=== PATIENT | male | born 1945 | race Caucasian/White ===

== ENCOUNTER 2017-05-12 09:25 | Observation (INO) | payer OTHER ==
[~2017-05-12] VITALS: Ht 177.8 cm; Wt 80.9 kg
[2017-05-12] MEDS ORDERED: SODIUM CHLORIDE 0.9% 1000ML 1,000 ML IV STA (09:55)
[2017-05-12] MEDS ORDERED: SODIUM CHLORIDE 0.9% 1000ML 1,000 ML IV ONE (09:55)
--- NOTE | 2017-05-12 09:56 | EMERGENCY ROOM VISIT NOTE ---
History Report prepared by Tammy: Felisha Pelayo Under the Supervision of: Dr. Owen Caro M.D. First contact with patient: 09:37 Chief Complaint: CHEST PAIN Stated Complaint: CHEST TIGHTNESS, DIZZINESS, SWEAT, NAUSEA & VOMIT History of Present Illness The patient is a 71 year old male who presents to the Emergency Room with complaints of constant chest pain beginning 3 hours ago. The patient states that he was not able to get comfortable this morning and his chest began feeling tight. He notes that when he sat up to go to the bathroom he had an episode of dizziness and diaphoresis before laying back down. The patient complains of nausea, multiple episodes of vomiting, jittery legs, weakness, and a headache. He reports that he has had multiple episodes of shortness of breath in the last week and some abdominal pain. The patient's notes that he looks more pale than usual and may have had some slurred speech this morning. The patient denies any arm pain, bloody stool, black stool, hematemesis, fever, chills, urinary symptoms, trauma. The patient states that they drove from [place] yesterday and got home last night. He notes that when he got up to go to the bathroom today he felt like he might have an episode of syncope that he notes he has had in the past. He reports a history of hypotension and states that he takes a baby aspirin every day. The patient denies any cardiac history and notes that he had a normal stress test 9 years ago. Source of History: patient Onset: 3 hours ago Position: chest Quality: other (tightness) Timing: constant Modifying Factors (Relieving): other (sitting up) Associated Symptoms: + headache, + SOB, + nausea, + vomiting, + abdominal pain, + urinary symptoms, + weakness, No fevers, No chills Note: Pt complains of dizziness, jittery legs. He denies any arm pain, bloody stool, black stool, hematemesis, trauma. Review of Systems See HPI for pertinent positives & negatives. A total of 10 systems reviewed and were otherwise negative. Past Medical & Surgical Medical Problems: (1) Back pain (2) BPH (benign prostatic hyperplasia) (3) Hernia (4) Syncope Surgical Problems: (1) History of back surgery (2) History of back surgery (3) History of hernia repair (4) History of hernia repair Old medical records were reviewed. Nurse's notes were reviewed and I agree with. Family History No pertinent family history stated. Social History Smoking Status: Never Smoker Drug Use: none Marital Status: Housing Status: lives with significant other Current/Historical Medications Scheduled Aspirin (Aspirin Ec), 81 MG PO DAILY Cyclobenzaprine Hcl (Flexeril), 10 MG PO HS Diclofenac (Voltaren), 75 MG PO BID Fluticasone Propionate (Nasal) (Flonase Allergy Relief), 2 SPRAYS NA DAILY Glucosamine Sulfate (Glucosamine), 1,000 MG PO DAILY Loratadine (Claritin), 10 MG PO DAILY Methocarbamol (Robaxin), 750 MG PO DAILY Omeprazole (Prilosec), 20 MG PO DAILY Pregabalin (Lyrica), 100 MG PO HS Pseudoephedrine (Sudafed), 30 MG PO DAILY Sildenafil Citrate (Viagra), 100 MG PO PRN Terazosin Hcl (Hytrin), 2 MG PO HS Scheduled PRN Acetaminophen (Tylenol), 500 MG PO for Pain Diclofenac Sodium (Topical) (Voltaren 1% Top Gel), 1 APPLN TOP for Pain Allergies Coded Allergies: Clindamycin (Unverified Allergy, Unknown, ., 05/12/17) Penicillins (Unverified Allergy, Unknown, ., 05/12/17) Physical Exam Vital Signs Date Time Temp Pulse Resp B/P (MAP) Pulse Ox O2 Delivery O2 Flow Rate FiO2 05/12/17 13:49 86 05/12/17 13:13 36.7 74 16 115/72 97 Room Air 05/12/17 11:02 87 18 127/69 97 Room Air 05/12/17 09:58 71 16 95/60 98 Room Air 05/12/17 09:40 73 05/12/17 09:34 70 18 103/60 94 Room Air Physical Exam General: Well developed well nourished mildly uncomfortable appearing older male , breathing comfortably on room air. Normal speech HEENT: Normal cephalic atraumatic. Pupils are equal round and reactive to light. Sclerae are anicteric Extraocular movements are intact. Oropharynx is pink with moist mucous membranes. No swelling of the mouth lips or tongue. Neck: Supple with a midline trachea. No meningeal signs or stiffness, no JVD or bruits. No Stridor. Chest: Clear to auscultation bilaterally. No wheezes or rhonchi. No increased work of breathing. Heart: regular rate and rhythm. Abdomen: Soft nontender, nondistended without rebound guarding or rigidity. Extremities: No cyanosis clubbing or edema. No calf tenderness or assymetry Spine/Back. Non tender to palpation. No CVA tenderness Skin: Good turgor without rashes. Neurologic exam: Cranial nerves two through 12 are intact. Motor and sensation are intact and symmetrical throughout. Medical Decision & Procedures ER Provider Diagnostic Interpretation: Radiology results as stated below per my review and radiologist interpretation: CT OF THE HEAD WITHOUT CONTRAST FINDINGS: No acute intracranial hemorrhage, midline shift or mass effect is present. Ventricular system is normal. Basilar cisterns are patent. There are no extra-axial collections. Scattered white matter hypodensities likely reflect small vessel disease. There are no findings to suggest acute dural sinus thrombosis or acute territorial infarct. There is a small air-fluid level within the left sphenoid sinus. Mastoid air cells are clear. There are no significant calvarial abnormalities. IMPRESSION: 1. No acute intracranial findings. 2. Small left sphenoid sinus air-fluid level. Electronically signed by: Edi Delcid M.D. 05/12/2017 11:53 AM Dictated Date/Time: 05/12/2017 11:50 AM CHEST COMBO ANGIO DISSECTION FINDINGS: The caliber of the thoracic aorta is normal. There is no intramural hematoma or thoracic aortic dissection. The size of the heart is normal. A small hiatal hernia is present. No pulmonary emboli are identified. There are no enlarged axillary, mediastinal or hilar lymph nodes. Central airways are patent. No pneumothorax or pleural effusion is present. Linear and groundglass opacities reflect atelectasis. There is no consolidation to suggest pneumonia. A right hepatic lobe cyst is incidentally noted. Abdomen and pelvis will be reported separately. IMPRESSION: 1. No thoracic aortic dissection. 2. No acute intrathoracic findings. 3. Small hiatal hernia. Electronically signed by: Edi Delcid M.D. 05/12/2017 12:01 PM Dictated Date/Time: 05/12/2017 11:53 AM ANGIO ABD/PELVIS COMBO FINDINGS: CTA: The noncontrast scan demonstrates no evidence of intramural hematoma. Mild degree of atherosclerotic plaquing involves the abdominal aorta and proximal branch vasculature. The bilateral renal arteries are patent with mild plaquing present at their origins bilaterally without high-grade stenosis. There is plaquing at the origin of the SMA causing less than 50% stenosis. The celiac trunk and inferior mesenteric arteries are patent. There is no abdominal aortic aneurysm or dissection. No high-grade stenosis. The imaged inferior cardiac chambers are within normal limits. Imaged basilar subsegmental pulmonary branches appear patent. CT ABDOMEN AND PELVIS: There is subsegmental linear atelectasis or scarring of the right lung base. There is no pneumoperitoneum. There are a few scattered low attenuating lesions throughout the liver which are too small to characterize. Largest lesion measuring 1.5 x 1.3 cm within the right hepatic lobe suggesting a cyst or hemangioma. The spleen is diminutive in size. There is mild pancreatic atrophy. The gallbladder and adrenal glands appear normal. There is nonspecific 3 mm calcification within the region of the juana hepatis. No renal calculi or hydronephrosis identified. The kidneys appear to be within normal limits. Ureters and urinary bladder are also unremarkable. Prostate is mildly enlarged at 4.9 cm transversely. No bulky adenopathy. There is a small sliding-type hiatal hernia. There is no bowel obstruction. There are several loops of nondilated fluid-filled small bowel of the lower abdomen and pelvis. There is a mild amount of free pelvic fluid present. Moderate volume of formed colonic stool is present throughout which may reflect underlying constipation. The right hemicolon is fluid-filled. There is no evidence of acute appendicitis. There is a very small fat filled peribulbar hernia resident. Prior left hemilaminectomy noted at L5 with prior right hemilaminectomy at L4. Advanced facet arthropathy involves the lower lumbar spine. There is convex left curvature of the lumbar spine. And vertebral disc space narrowing seen at several levels, notably at L3-L4 and L4-L5. Less than 20% compression deformity of the L2 vertebral body is present without retropulsion, age indeterminate however appears to be chronic. IMPRESSION: 1. No evidence of abdominal aortic aneurysm, dissection or proximal branch occlusion. 2. Atherosclerotic plaquing at the origins of the renal arteries and SMA are present without high-grade stenosis. 3. Age-indeterminate compression deformity of the L2 vertebral body of less than 20% is noted without significant retropulsion. 4. Multiple nondilated fluid-filled loops of small and large bowel are present in conjunction with trace pelvic fluid suggesting enteritis with diarrheal state. There is no evidence of bowel obstruction. 5. Additional incidental findings as above. The above report was generated using voice recognition software. It may contain grammatical, syntax or spelling errors. Electronically signed by: Kishore Mora M.D. 05/12/2017 12:07 PM Dictated Date/Time: 05/12/2017 11:54 AM Laboratory Results 05/12/17 10:00 Red Blood Count 4.84, Mean Corpuscular Volume 89.5, Mean Corpuscular Hemoglobin 30.8, Mean Corpuscular Hemoglobin Concent 34.4, Mean Platelet Volume 9.0, Neutrophils (%) (Auto) 90.0, Lymphocytes (%) (Auto) 5.4, Monocytes (%) (Auto) 3.8, Eosinophils (%) (Auto) 0.6, Basophils (%) (Auto) 0.0, Neutrophils # (Auto) 4.31, Lymphocytes # (Auto) 0.26, Monocytes # (Auto) 0.18, Eosinophils # (Auto) 0.03, Basophils # (Auto) 0.00 05/12/17 10:00 Test 05/12/17 10:00 05/12/17 10:06 05/12/17 10:07 05/12/17 10:10 White Blood Count 4.79 K/uL (4.8-10.8) Red Blood Count 4.84 M/uL (4.7-6.1) Hemoglobin 14.9 g/dL (14.0-18.0) Hematocrit 43.3 % (42-52) Mean Corpuscular Volume 89.5 fL (80-100) Mean Corpuscular Hemoglobin 30.8 pg (25-34) Mean Corpuscular Hemoglobin Concent 34.4 g/dl (32-36) Platelet Count 227 K/uL (130-400) Mean Platelet Volume 9.0 fL (7.4-10.4) Neutrophils (%) (Auto) 90.0 % Lymphocytes (%) (Auto) 5.4 % Monocytes (%) (Auto) 3.8 % Eosinophils (%) (Auto) 0.6 % Basophils (%) (Auto) 0.0 % Neutrophils # (Auto) 4.31 K/uL (1.4-6.5) Lymphocytes # (Auto) 0.26 K/uL (1.2-3.4) Monocytes # (Auto) 0.18 K/uL (0.11-0.59) Eosinophils # (Auto) 0.03 K/uL (0-0.5) Basophils # (Auto) 0.00 K/uL (0-0.2) RDW Standard Deviation 43.0 fL (36.4-46.3) RDW Coefficient of Variation 13.2 % (11.5-14.5) Immature Granulocyte % (Auto) 0.2 % Immature Granulocyte # (Auto) 0.01 K/uL (0.00-0.02) Prothrombin Time 10.2 SECONDS (9.0-12.0) Prothromb Time International Ratio 1.0 (0.9-1.1) Activated Partial Thromboplast Time 23.3 SECONDS (21.0-31.0) Partial Thromboplastin Ratio 0.9 Est Creatinine Clear Calc Drug Dose 91.0 ml/min Estimated GFR () 106.0 Estimated GFR (Non- 91.5 BUN/Creatinine Ratio 18.0 (10-20) Calcium Level 8.5 mg/dl (8.5-10.1) Total Bilirubin 0.4 mg/dl (0.2-1) Direct Bilirubin < 0.1 mg/dl (0-0.2) Aspartate Amino Transf (AST/SGOT) 33 U/L (15-37) Alanine Aminotransferase (ALT/SGPT) 32 U/L (12-78) Alkaline Phosphatase 73 U/L (45-117) Total Creatine Kinase 572 U/L (39-308) Creatine Kinase MB 2.3 ng/ml (0.5-3.6) Creatine Kinase MB Ratio 0.4 (0-3.0) Total Protein 7.1 gm/dl (6.4-8.2) Albumin 3.7 gm/dl (3.4-5.0) Lipase 109 U/L (73-393) Thyroid Stimulating Hormone (TSH) 1.450 uIu/ml (0.300-4.500) Bedside Hemoglobin 16.0 g/dl (14.0-18.0) Bedside Hematocrit 47 % (42-52) Bedside Sodium 139 mEq/L (135-144) Bedside Potassium 3.9 mEq/L (3.3-5.0) Bedside Chloride 99 mEq/L (101-112) Bedside Total CO2 27 mEq/l (24-31) Anion Gap 18.0 mmol/L (16-25) Bedside Blood Urea Nitrogen 15 mg/dl (7-18) Bedside Creatinine 0.7 mg/dl (0.6-1.3) Bedside Glucose (other) 106 mg/dl (70-99) Bedside Ionized Calcium (Chrissy) 1.16 mmol/l (1.12-1.32) Bedside Troponin I < 0.030 ng/ml (0-0.045) KN-Anv-I-Type Natriuretic Peptide 80 pg/ml (0-900) Urine Color YELLOW Urine Appearance CLEAR (CLEAR) Urine pH 6.5 (4.5-7.5) Urine Specific [place] 1.012 (1.000-1.030) Urine Protein NEG (NEG) Urine Glucose (UA) NEG (NEG) Urine Ketones NEG (NEG) Urine Occult Blood NEG (NEG) Urine Nitrite NEG (NEG) Urine Bilirubin NEG (NEG) Urine Urobilinogen NEG (NEG) Urine Leukocyte Esterase NEG (NEG) Laboratory studies as stated above per my review. Medications Administered Medications (Trade) Dose Ordered Sig/Aisha Route Start Time Stop Time Status Last Admin Dose Admin Sodium Chloride 1,000 ml @ 999 mls/hr Q1H1M STAT IV 05/12/17 09:55 05/12/17 10:55 DC 05/12/17 10:15 999 MLS/HR Ondansetron HCl (Zofran Inj) 4 mg NOW STAT IV 05/12/17 10:39 05/12/17 10:40 DC 05/12/17 11:00 4 MG ECG Indication: chest pain Rate (beats per minute): 68 Rhythm: normal sinus Findings: LAFB, no acute ischemic change, no ectopy Comparison ECG Date: no prior available ED Course 0937: Past medical records reviewed. The patient was evaluated in room B10, and a complete history and physical examination were performed. 0955: Sodium Chloride 1000 ml @ 150 mls/hr IV, Sodium Chloride 1000 ml @ 999 mls /hr IV. 1011: I reevaluated the patient. He had an episode of emesis but is now feeling better. 1039: Zofran Inj 4mg IV. 1102: The patient had another episode of emesis. 1132: I reevaluated the patient and he is doing well. 1236: Discussed the patient's case with Dr. Kelly. The patient will be evaluated for further management. 1308: Upon reevaluation, the patient is doing well. I discussed the results and treatment plan with the patient. He verbalized agreement of the treatment plan. The patient will be evaluated for further management. Medical Decision Differential diagnosis includes acute coronary syndrome, arrhythmia, aortic aneurysm, CVA, sepsis, electrolyte or metabolic abnormality. This patient comes in as described above. He was placed in room B 10. Here for treatment and evaluation of chest pain and nausea/vomiting. He says he feels very dizzy at times particularly when standing. He has also had some abdominal pain at times and a headache. His symptoms are somewhat vague and seemed to be changing while he is in the ER.. He did vomit a couple times EKG shows no acute ischemic changes or ectopy I did a second EKG and there is no significant change compared to the first. Chest x-ray was unremarkable. Cardiac biomarkers are negative thus far multiple blood testing was unremarkable. There are no liver function or her lipase abnormalities. Because the patient's symptoms, I did do a CAT scan of his chest abdomen and pelvis to rule out aortic dissection or other pathology. She has no evidence to suggest AAA or aneurysm. There may be more of an enteritis. The patient was hydrated with IV normal saline while he was in the ER as well as received IV Zofran. The patient does feel much better but I do think with the chest pain and dizziness the vomiting he should be further ruled out for cardiac disease. I have consulted the [facility] hospitalist group this on the ER for these measures. Medication Reconcilliation Current Medication List: was personally reviewed by me Blood Pressure Screening Patient's blood pressure: Low blood pressure Blood pressure disposition: Did not require urgent referral Consults Time Called: 1230 Consulting Physician: Dr. Alex Barrett Returned Call: 1236 Discussed the patient's case with Dr. Kelly. The patient will be evaluated for further management. Impression Primary Impression: Precordial chest pain Additional Impressions: Vomiting Dizziness Abdominal pain Scribe Attestation The scribe's documentation has been prepared under my direction and personally reviewed by me in its entirety. I confirm that the note above accurately reflects all work, treatment, procedures, and medical decision making performed by me. Departure Information Dispostion Being Evaluated By Hospitalist Referrals No Doctor, Assigned (PCP) Patient Instructions My [facility] Problem Qualifiers
[2017-05-12] MEDS ORDERED: OPTIRAY 320 IV PRN (10:15)
[2017-05-12 10:18] LABS: ISTAT CREATININE 0.7 mg/dl (0.6-1.3); ISTAT IONIZED CALCIUM 1.16 mmol/l (1.12-1.32)
[2017-05-12 10:26] LABS: POINT OF CARE PRO-BNP 80 pg/ml (0-900); POINT OF CARE TROPONIN I < 0.030 ng/ml (0-0.045)
[2017-05-12] MEDS ORDERED: SILD100T PO (10:31)
[2017-05-12] MEDS ORDERED: ASPI81TA28 PO (10:31)
[2017-05-12] MEDS ORDERED: ACET-1256 PO (10:31)
[2017-05-12] MEDS ORDERED: CYCL10TA6 PO (10:31)
[2017-05-12] MEDS ORDERED: DICL-201 PO (10:31)
[2017-05-12] MEDS ORDERED: DICL1GEL12 TOP (10:31)
[2017-05-12] MEDS ORDERED: METH-307 PO (10:31)
[2017-05-12] MEDS ORDERED: HYT/2 PO (10:31)
[2017-05-12] MEDS ORDERED: LYR50 PO (10:31)
[2017-05-12] MEDS ORDERED: FLUT0.15 (10:31)
[2017-05-12] MEDS ORDERED: PRLSR20 PO (10:31)
[2017-05-12 10:32] LABS: EOS % 0.6 %; HEMATOCRIT 43.3 % (42-52); IG% 0.2 %; LYMPH % 5.4 %; LYMPH ABS # 0.26 K/uL (1.2-3.4); MEAN CELL VOLUME 89.5 fL (80-100); MEAN CORPUSCULAR HEMOGLOBIN 30.8 pg (25-34); MEAN CORPUSCULAR HGB CONC 34.4 g/dl (32-36); MONO % 3.8 %; PLATELET COUNT 227 K/uL (130-400); RED BLOOD COUNT 4.84 M/uL (4.7-6.1); WHITE BLOOD COUNT 4.79 K/uL (4.8-10.8)
[2017-05-12] MEDS ORDERED: CLR10 PO (10:32)
[2017-05-12] MEDS ORDERED: GLUC100014 PO (10:32)
[2017-05-12] MEDS ORDERED: PSEU30TA20 PO (10:32)
[2017-05-12 10:33] LABS: COMPLETE YES
[2017-05-12] MEDS ORDERED: ONDANSETRON INJ 2 MG/ML 2 ML VIAL IV STA (10:39)
[2017-05-12 10:44] LABS: PARTIAL THROMBOPLASTIN RATIO 0.9; PROTHROMBIN TIME (PATIENT) 10.2 SECONDS (9.0-12.0)
[2017-05-12 10:54] LABS: ALT/SGPT 32 U/L (12-78); AST/SGOT 33 U/L (15-37); BLOOD UREA NITROGEN 14 mg/dl (7-18); CALCIUM 8.5 mg/dl (8.5-10.1); CARBON DIOXIDE 31 mmol/L (21-32); CHLORIDE 104 mmol/L (98-107); CREATININE 0.78 mg/dl (0.60-1.40); GLUCOSE 101 mg/dl (70-99); POTASSIUM 3.8 mmol/L (3.5-5.1); SODIUM 138 mmol/L (136-145)
[2017-05-12 11:05] LABS: ALKALINE PHOSPHATASE 73 U/L (45-117); CKMB/CK RATIO 0.4 (0-3.0)
[2017-05-12 11:51] LABS: URINE APPEARANCE CLEAR (CLEAR); URINE BILIRUBIN NEG (NEG); URINE COLOR YELLOW; URINE NITRITE NEG (NEG); URINE PH 6.5 (4.5-7.5); URINE SPECIFIC GRAVITY 1.012 (1.000-1.030); UROBILINOGEN NEG (NEG)
--- NOTE | 2017-05-12 11:54 | DIAGNOSTIC IMAGING REPORT ---
CT OF THE HEAD WITHOUT CONTRAST CLINICAL HISTORY: Headache. Dizziness. COMPARISON STUDY: No previous studies for comparison. TECHNIQUE: Helical axial images of the head were obtained without IV contrast. Automated exposure control was utilized for the study. A dose lowering technique was utilized adhering to the principles of ALARA. FINDINGS: No acute intracranial hemorrhage, midline shift or mass effect is present. Ventricular system is normal. Basilar cisterns are patent. There are no extra-axial collections. Scattered white matter hypodensities likely reflect small vessel disease. There are no findings to suggest acute dural sinus thrombosis or acute territorial infarct. There is a small air-fluid level within the left sphenoid sinus. Mastoid air cells are clear. There are no significant calvarial abnormalities. IMPRESSION: 1. No acute intracranial findings. 2. Small left sphenoid sinus air-fluid level. Electronically signed by: Edi Delcid M.D. 05/12/2017 11:53 AM Dictated Date/Time: 05/12/2017 11:50 AM
[2017-05-12 12:01] LABS: MANUAL MICROSCOPIC REQUIRED? NO; REVIEW REQ? NO
--- NOTE | 2017-05-12 12:02 | DIAGNOSTIC IMAGING REPORT ---
CHEST COMBO ANGIO DISSECTION CLINICAL HISTORY: Chest tightness, nausea and vomiting. COMPARISON STUDY: No previous studies for comparison. TECHNIQUE: Unenhanced and arterial phase imaging of the chest was performed. Injection of 93 cc Optiray 320 IV was uneventful. Sagittal and coronal reconstructions were viewed as well as maximal intensity projections on an independent 3-D workstation. FINDINGS: The caliber of the thoracic aorta is normal. There is no intramural hematoma or thoracic aortic dissection. The size of the heart is normal. A small hiatal hernia is present. No pulmonary emboli are identified. There are no enlarged axillary, mediastinal or hilar lymph nodes. Central airways are patent. No pneumothorax or pleural effusion is present. Linear and groundglass opacities reflect atelectasis. There is no consolidation to suggest pneumonia. A right hepatic lobe cyst is incidentally noted. Abdomen and pelvis will be reported separately. IMPRESSION: 1. No thoracic aortic dissection. 2. No acute intrathoracic findings. 3. Small hiatal hernia. Electronically signed by: Edi Delcid M.D. 05/12/2017 12:01 PM Dictated Date/Time: 05/12/2017 11:53 AM
--- NOTE | 2017-05-12 12:09 | DIAGNOSTIC IMAGING REPORT ---
ANGIO ABD/PELVIS COMBO CLINICAL HISTORY: 71 years-old Male with eval for AAA acute chest tightness and dizziness with nausea and vomiting COMPARISON STUDY: CTA of the chest 05/12/2017 TECHNIQUE: Following the IV administration of 93 cc of Optiray 320, CT angiogram of the abdomen and pelvis was performed from the lung bases the proximal femora. Images are reviewed in the axial, sagittal, and coronal planes. 3-D MIPS images are created and assessed. IV contrast was administered without complication. Measurements were obtained utilizing NASCET criteria. A dose lowering technique was utilized adhering to the principles of ALARA. FINDINGS: CTA: The noncontrast scan demonstrates no evidence of intramural hematoma. Mild degree of atherosclerotic plaquing involves the abdominal aorta and proximal branch vasculature. The bilateral renal arteries are patent with mild plaquing present at their origins bilaterally without high-grade stenosis. There is plaquing at the origin of the SMA causing less than 50% stenosis. The celiac trunk and inferior mesenteric arteries are patent. There is no abdominal aortic aneurysm or dissection. No high-grade stenosis. The imaged inferior cardiac chambers are within normal limits. Imaged basilar subsegmental pulmonary branches appear patent. CT ABDOMEN AND PELVIS: There is subsegmental linear atelectasis or scarring of the right lung base. There is no pneumoperitoneum. There are a few scattered low attenuating lesions throughout the liver which are too small to characterize. Largest lesion measuring 1.5 x 1.3 cm within the right hepatic lobe suggesting a cyst or hemangioma. The spleen is diminutive in size. There is mild pancreatic atrophy. The gallbladder and adrenal glands appear normal. There is nonspecific 3 mm calcification within the region of the juana hepatis. No renal calculi or hydronephrosis identified. The kidneys appear to be within normal limits. Ureters and urinary bladder are also unremarkable. Prostate is mildly enlarged at 4.9 cm transversely. No bulky adenopathy. There is a small sliding-type hiatal hernia. There is no bowel obstruction. There are several loops of nondilated fluid-filled small bowel of the lower abdomen and pelvis. There is a mild amount of free pelvic fluid present. Moderate volume of formed colonic stool is present throughout which may reflect underlying constipation. The right hemicolon is fluid-filled. There is no evidence of acute appendicitis. There is a very small fat filled peribulbar hernia resident. Prior left hemilaminectomy noted at L5 with prior right hemilaminectomy at L4. Advanced facet arthropathy involves the lower lumbar spine. There is convex left curvature of the lumbar spine. And vertebral disc space narrowing seen at several levels, notably at L3-L4 and L4-L5. Less than 20% compression deformity of the L2 vertebral body is present without retropulsion, age indeterminate however appears to be chronic. IMPRESSION: 1. No evidence of abdominal aortic aneurysm, dissection or proximal branch occlusion. 2. Atherosclerotic plaquing at the origins of the renal arteries and SMA are present without high-grade stenosis. 3. Age-indeterminate compression deformity of the L2 vertebral body of less than 20% is noted without significant retropulsion. 4. Multiple nondilated fluid-filled loops of small and large bowel are present in conjunction with trace pelvic fluid suggesting enteritis with diarrheal state. There is no evidence of bowel obstruction. 5. Additional incidental findings as above. The above report was generated using voice recognition software. It may contain grammatical, syntax or spelling errors. Electronically signed by: Kishore Mora M.D. 05/12/2017 12:07 PM Dictated Date/Time: 05/12/2017 11:54 AM
[2017-05-12] MEDS ORDERED: ONDANSETRON INJ 2 MG/ML 2 ML VIAL IV PRN (14:00)
--- NOTE | 2017-05-12 14:31 | History and Physical ---
History & Physical Date & Time of Service: May 12, 2017 at 14:24 Chief Complaint: Chest Tightness, Dizziness, Sweat, Nausea & Vomit Primary Care Physician: No Doctor, Assigned History of Present Illness Source: patient, family (Kaleigh Pérez who is the at bedside. 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 Patient also reported feeling headache. Vitals in the ED were remarkable for low normal blood pressure of 103/60 and HR 70. Initial temperature was not documented however subsequent temperature taken afebrile 99.7 F. Because of pain of the head, chest , abdomen, patient was sent by ED provider for CT scan of head and CT abdomen/ angiography. CT head did not show evidence of intracranial injury and CT abdomen /angiography showed multiple nondilated fluid-filled loops of small and large bowel are present in conjunction with trace pelvic fluid suggestive of enteritis. As per the imaging report there is no evidence of abdominal aortic aneurysm, dissection or proximal branch occlusion; there is atherosclerotic plaquing at the origins of the renal arteries and SMA are present without high- grade stenosis. Other findings of small hiatal hernia and a right hepatic lobe cyst and age-indeterminate compression deformity of the L2 vertebral body of less than 20% is noted without significant retropulsion. Labs reviewed showing first troponin level negative at 0.03 and levels of AST/ALT/ Alkaline phosphatase/Bilirubin/Lipase within normal limits however elevated CK of 572. Urine studies negative. In the ED patient received IV fluids and Zofran 4 mg IV and when seen by hospitalist medicine provider, patient did not have further acute complaints of lightheadedness, chest/abdominal pain, or vomiting. He was able to give history without distress. Past Medical/Surgical History Medical Problems: (1) Back pain Status: Chronic (2) BPH (benign prostatic hyperplasia) Status: Chronic Surgical Problems: (1) History of back surgery Status: Chronic (2) History of hernia repair Status: Chronic Family History FH: bladder cancer FATHER FH: prostate cancer FATHER FH: thyroid cancer MOTHER FHx: heart disease FATHER MOTHER Hypertension MOTHER Social History Smoking Status: Never Smoker Alcohol Use: socially (2 glasses of wine per week) Drug Use: none Marital Status: Housing status: lives with family Immunizations History of Influenza Vaccine: Unknown History of Tetanus Vaccine?: Unknown History of Pneumococcal: Unknown History of Hepatitis B Vaccine: Unknown Multi-Drug Resistant Organisms History of MDRO: No Allergies Coded Allergies: Clindamycin (Unverified Allergy, Unknown, ., 05/12/17) Penicillins (Unverified Allergy, Unknown, ., 05/12/17) Home Medications Scheduled Aspirin (Aspirin Ec), 81 MG PO DAILY Cyclobenzaprine Hcl (Flexeril), 10 MG PO HS Diclofenac (Voltaren), 75 MG PO BID Fluticasone Propionate (Nasal) (Flonase Allergy Relief), 2 SPRAYS NA DAILY Glucosamine Sulfate (Glucosamine), 1,000 MG PO DAILY Loratadine (Claritin), 10 MG PO DAILY Methocarbamol (Robaxin), 750 MG PO DAILY Omeprazole (Prilosec), 20 MG PO DAILY Pregabalin (Lyrica), 100 MG PO HS Pseudoephedrine (Sudafed), 30 MG PO DAILY Sildenafil Citrate (Viagra), 100 MG PO PRN Terazosin Hcl (Hytrin), 2 MG PO HS Scheduled PRN Acetaminophen (Tylenol), 500 MG PO for Pain Diclofenac Sodium (Topical) (Voltaren 1% Top Gel), 1 APPLN TOP for Pain Review of Systems Constitutional: No fever, No chills, No weight loss Eyes: No worsening of vision ENT: No hearing loss, No sore throat, No trouble swallowing Respiratory: No cough, No sputum, No shortness of breath, No dyspnea on exertion, No dyspnea at rest, No hemoptysis Cardiovascular: + chest pain, No edema, No palpitations Abdomen: + pain, + nausea, + vomiting, No diarrhea, No constipation, No GI bleeding Musculoskeletal: No joint pain, No muscle pain, No swelling, No calf pain Genitourinary - Male: No hematuria, No dysuria, No urinary frequency, No urinary hesitancy, No urinary retention, No urinary incontinence, No penile discharge, No lesions, No impotence Neurologic: No memory loss, No paralysis, No numbness/tingling Psychiatric: No anxiety, No substance abuse Endocrine: No fatigue, No excessive thirst, No excessive urination Hematologic / Lymphatic: No night sweats Integumentary: No rash Physical Exam Vital Signs Date Time Temp Pulse Resp B/P (MAP) Pulse Ox O2 Delivery O2 Flow Rate FiO2 05/12/17 11:02 87 18 127/69 97 Room Air 05/12/17 09:58 71 16 95/60 98 Room Air 05/12/17 09:40 73 05/12/17 09:34 70 18 103/60 94 Room Air General Appearance: no apparent distress Head: normocephalic, atraumatic Eyes: normal inspection, PERRL, EOMI ENT: normal ENT inspection, hearing grossly normal, pharynx normal Neck: supple, no JVD, trachea midline Respiratory/Chest: chest non-tender, lungs clear, normal breath sounds, no respiratory distress, no accessory muscle use Cardiovascular: regular rate, rhythm, no edema, no JVD Abdomen/GI: normal bowel sounds, non tender, soft Back: normal inspection, no CVA tenderness, no muscle spasm, normal range of motion Extremities/Musculoskelatal: normal inspection, no calf tenderness, no pedal edema Diagnostics Laboratory Results Results Past 24 Hours Test 05/12/17 10:00 05/12/17 10:06 05/12/17 10:07 05/12/17 10:10 Range/Units White Blood Count 4.79 4.8-10.8 K/uL Red Blood Count 4.84 4.7-6.1 M/uL Hemoglobin 14.9 14.0-18.0 g/dL Hematocrit 43.3 42-52 % Mean Corpuscular Volume 89.5 80-100 fL Mean Corpuscular Hemoglobin 30.8 25-34 pg Mean Corpuscular Hemoglobin Concent 34.4 32-36 g/dl Platelet Count 227 130-400 K/uL Mean Platelet Volume 9.0 7.4-10.4 fL Neutrophils (%) (Auto) 90.0 % Lymphocytes (%) (Auto) 5.4 % Monocytes (%) (Auto) 3.8 % Eosinophils (%) (Auto) 0.6 % Basophils (%) (Auto) 0.0 % Neutrophils # (Auto) 4.31 1.4-6.5 K/uL Lymphocytes # (Auto) 0.26 1.2-3.4 K/uL Monocytes # (Auto) 0.18 0.11-0.59 K/uL Eosinophils # (Auto) 0.03 0-0.5 K/uL Basophils # (Auto) 0.00 0-0.2 K/uL RDW Standard Deviation 43.0 36.4-46.3 fL RDW Coefficient of Variation 13.2 11.5-14.5 % Immature Granulocyte % (Auto) 0.2 % Immature Granulocyte # (Auto) 0.01 0.00-0.02 K/uL Prothrombin Time 10.2 9.0-12.0 SECONDS Prothromb Time International Ratio 1.0 0.9-1.1 Activated Partial Thromboplast Time 23.3 21.0-31.0 SECONDS Partial Thromboplastin Ratio 0.9 Sodium Level 138 136-145 mmol/L Potassium Level 3.8 3.5-5.1 mmol/L Chloride Level 104 98-107 mmol/L Carbon Dioxide Level 31 21-32 mmol/L Anion Gap 3.0 18.0 16-25 mmol/L Blood Urea Nitrogen 14 7-18 mg/dl Creatinine 0.78 0.60-1.40 mg/dl Est Creatinine Clear Calc Drug Dose 91.0 ml/min Estimated GFR () 106.0 Estimated GFR (Non- 91.5 BUN/Creatinine Ratio 18.0 10-20 Random Glucose 101 70-99 mg/dl Calcium Level 8.5 8.5-10.1 mg/dl Total Bilirubin 0.4 0.2-1 mg/dl Direct Bilirubin < 0.1 0-0.2 mg/dl Aspartate Amino Transf (AST/SGOT) 33 15-37 U/L Alanine Aminotransferase (ALT/SGPT) 32 12-78 U/L Alkaline Phosphatase 73 45-117 U/L Total Creatine Kinase 572 39-308 U/L Creatine Kinase MB 2.3 0.5-3.6 ng/ml Creatine Kinase MB Ratio 0.4 0-3.0 Total Protein 7.1 6.4-8.2 gm/dl Albumin 3.7 3.4-5.0 gm/dl Lipase 109 73-393 U/L Thyroid Stimulating Hormone (TSH) 1.450 0.300-4.500 uIu/ml Bedside Hemoglobin 16.0 14.0-18.0 g/dl Bedside Hematocrit 47 42-52 % Bedside Sodium 139 135-144 mEq/L Bedside Potassium 3.9 3.3-5.0 mEq/L Bedside Chloride 99 101-112 mEq/L Bedside Total CO2 27 24-31 mEq/l Bedside Blood Urea Nitrogen 15 7-18 mg/dl Bedside Creatinine 0.7 0.6-1.3 mg/dl Bedside Glucose (other) 106 70-99 mg/dl Bedside Ionized Calcium (Chrissy) 1.16 1.12-1.32 mmol/l Bedside Troponin I < 0.030 0-0.045 ng/ml LR-[id number]-Type Natriuretic Peptide 80 0-900 pg/ml Urine Color YELLOW Urine Appearance CLEAR CLEAR Urine pH 6.5 4.5-7.5 Urine Specific [place] 1.012 1.000-1.030 Urine Protein NEG NEG Urine Glucose (UA) NEG NEG Urine Ketones NEG NEG Urine Occult Blood NEG NEG Urine Nitrite NEG NEG Urine Bilirubin NEG NEG Urine Urobilinogen NEG NEG Urine Leukocyte Esterase NEG NEG Microbiology Results 05/12/17 Urine Culture, Received Pending Impression Assessment and Plan 71 year old M with Past Medical History of multiple episodes of vasovagal syncope with prior hospital workup outside of [facility] and hernia repair with diffuse abdominal and chest pain with presyncopal symptoms and vomiting. Chest pain - resolved -initial EKG resulted as NSR with left anterior fascicular block -observation on telemetry -continue home medication of aspirin 81 mg daily Abdominal pain -CT angio/abdomen with evidence of enteritis -incidental right hepatic lobe cyst noted however is unlikely to explain presentation of diffuse abdominal discomfort with chest pain, may be followed subsequently as outpatient vs inpatient right upper quadrant ultrasound -history of hernia repair, no abdominal imaging findings suggestive of hernia repair complications -atherosclerotic plaquing at the origins of the renal arteries and SMA are present without high-grade stenosis, may consider starting statins as outpatient once elevations in CK resolves -continue home GERD medication of omeprazole as Pantoprazole daily Vomiting -Zofran prn as needed -diet as tolerated -may need IV fluids if patient continues to have vomiting Elevated creatinine kinase -may be from dehydration secondary to vomiting, no urine or elevations in BUN/ creatinine suggestive of rhabdomyolysis at this time -repeat CK in the AM Blood pressure -IV fluids as needed if systolic blood pressure less than 90 or diastolic blood pressure less than 60, target MAP above 60 -has received IV fluids before orthostatics were attempted, will do orthostatics in the AM Presyncope -CT head negative -observation on telemetry -initial troponin negative, trend troponin History of BPH -stop home dose terazosin for now because of presyncope symptoms and low normal blood pressures History of back pain with back surgeries -age-indeterminate compression deformity of the L2 vertebral body of less than 20% is noted without significant retropulsion -no acute back pain findings on physical exam -continue with home dose pregabalin DVT prophylaxis -Lovenox 40 mg daily subc, ambulation as tolerated Level of Care Telemetry Advanced Directives Existing Advance Directive: Yes (patient reports having advance directive documents in the past but not in his possession currently. His Kaleigh Pérez ([phone]) is next of kin) Resuscitation Status FULL RESUSCITATION VTE Prophylaxis VTE Risk Assessment Done? Y/N: Yes Risk Level: Moderate Social Service Consult None Apply
[2017-05-12] MEDS ORDERED: SODIUM CHLORIDE 0.9% 1000ML 500 ML IV ONE (14:46)
[2017-05-12] MEDS ORDERED: IV FLUIDS COMPLETED PRN (15:00)
[2017-05-12 15:04] VITALS: BMI 26.0
[2017-05-12 16:14] VITALS: BP 92/60; PULSE 78; TEMP 36.5; O2SAT 92
[2017-05-12 16:43] VITALS: BP 92/60; PULSE 78; TEMP 36.5; O2SAT 92; Ht 177.8 cm; Wt 80.9 kg
[2017-05-12 20:10] VITALS: BP 92/52; PULSE 55; TEMP 36.5; O2SAT 95
[2017-05-12] MEDS ORDERED: PREGABALIN 50 MG CAP PO SCH (21:00)
[2017-05-12] MEDS ORDERED: ENOXAPARIN 40 MG/0.4 ML SYR SC SCH (21:00)
[2017-05-13 00:22] VITALS: BP 79/46; PULSE 65; TEMP 36.8; O2SAT 96
[2017-05-13 03:59] VITALS: BP 93/53; PULSE 58; TEMP 36.8; O2SAT 93
[2017-05-13 07:11] LABS: BLOOD UREA NITROGEN 15 mg/dl (7-18); BUN/CREATININE RATIO 21.4 (10-20); CALCIUM 7.6 mg/dl (8.5-10.1); CARBON DIOXIDE 26 mmol/L (21-32); CHLORIDE 107 mmol/L (98-107); CREATININE 0.69 mg/dl (0.60-1.40); GLUCOSE 94 mg/dl (70-99); POTASSIUM 3.7 mmol/L (3.5-5.1); SODIUM 139 mmol/L (136-145)
[2017-05-13 08:00] VITALS: O2SAT 93
[2017-05-13] MEDS ORDERED: ASPIRIN 81 MG ECTAB PO SCH (09:00)
[2017-05-13] MEDS ORDERED: PANTOprazole SOD 40 MG TAB PO SCH (09:00)
[2017-05-13] MEDS ORDERED: PERFLUTREN LIPID MICROSPHERE (DEFINITY) IV ONE (09:21)
--- NOTE | 2017-05-13 10:21 | ECHOCARDIOGRAM REPORT ---
*NOTICE TO RECEIVING REPUBLICAN AGENCY This information is strictly Confidential and protected under [place] law. [place] law prohibits you from making any further disclosure of this information unless further disclosure is expressly permitted by the written consent of the person to whom it pertains or is authorized by law. A general authorization for the release of medical or other information is not sufficient for this purpose. Hospital accepts no responsibility if the information is made available to any other person, INCLUDING THE PATIENT. Interpretation Summary * Name: ITALO PARR Study Date: 05/13/2017 07:07 AM BP: 93/53 mmHg * Patient Location: [facility]\S\N289\S\2 HR: 58 * : 1945 (M/d/yyy) Gender: Male Height: 70 in * Age: 71 yrs Ethnicity: CA Weight: 181 lb * Ordering Physician: Italo Amezquita * Referring Physician: Self, Referred * Performed By: Nikia Pastrana RDCS * * Reason For Study: CHEST PAIN * BSA: 2.0 m2 * The study was technically adequate. * -- Conclusions -- * The left ventricular wall motion is normal. * No regional wall motion abnormalities noted. * The LV Ejection Fraction = 55-60% (normal). * Aortic valve sclerosis mild, without significant aortic valvular stenosis. * Grade I diastolic dysfunction, (abnormal relaxation pattern). Procedure Details * A contrast injection of Definity was performed to improve assessment of LV function. * Contrast was injected into an intravenous site in the right arm. * One vial of Definity ultrasound contrast was diluted in normal saline to a total volume of 10 ml. A total of '2' ml of solution was administered during imaging. * Lot # [id number] of Definity utilized for procedure. * Expiration date JUL 23. * The attending nurse who injected the contrast agent was ZULEYMA ZHANG RN. * A complete two-dimensional transthoracic echocardiogram was performed (2D, M-mode, Doppler and color flow Doppler). Left Ventricle * The left ventricle is normal in size. * There is normal left ventricular wall thickness. * Ejection Fraction = 55-60%. * Left ventricular systolic function is normal. * The left ventricular wall motion is normal. * No regional wall motion abnormalities noted. Right Ventricle * The right ventricle is normal size. * The right ventricular systolic function is normal as assessed by tricuspid annular plane systolic excursion (TAPSE) (normal >1.5 cm). Atria * The left atrial size is normal. * Right atrial size is normal. * There is no evidence of atrial septal defect, but resolution does not allow assessment for a patent foramen ovale. Mitral Valve * The mitral valve is normal. * There is no mitral valve stenosis. * Significant mitral regurgitation is absent. Tricuspid Valve * The tricuspid valve is normal. * There is no tricuspid stenosis. * Significant tricuspid regurgitation is absent. Aortic Valve * The aortic valve is trileaflet. * Aortic valve sclerosis mild, without significant aortic valvular stenosis. * Aortic stenosis is absent. * There is no significant aortic regurgitation. Pulmonic Valve * The pulmonary valve is not well seen, but the Doppler examination is normal without significant regurgitation or stenosis. Great Vessels * The aortic root and proximal ascending aorta are normal sized. Pericardium/Pleural * There is no pericardial effusion. Great Vessels * Normal inferior vena cava diameter and respiratory variation suggests normal central venous pressure. Left Ventricular Diastolic Function * Grade I diastolic dysfunction, (abnormal relaxation pattern). MMode 2D Measurements and Calculations IVSd 0.95 cm IVSs 1.5 cm LVIDd 4.2 cm LVIDs 2.9 cm LVPWd 1.1 cm LVPWs 1.4 cm IVS/LVPW 0.87 FS 31.9 % EDV(Teich) 79.7 ml ESV(Teich) 31.6 ml EF(Teich) 60.3 % EDV(cubed) 75.5 ml ESV(cubed) 23.9 ml EF(cubed) 68.4 % % IVS thick 59.3 % % LVPW thick 29.5 % LV mass(C)d 142.6 grams LV mass(C)dI 71.3 grams/m\S\2 LV mass(C)s 143.6 grams LV mass(C)sI 71.8 grams/m\S\2 SV(Teich) 48.1 ml SI(Teich) 24.0 ml/m\S\2 SV(cubed) 51.6 ml SI(cubed) 25.8 ml/m\S\2 Ao root diam 3.4 cm Ao root area 9.0 cm\S\2 LA dimension 3.1 cm LA/Ao 0.93 LVAd ap4 31.9 cm\S\2 LVLd ap4 8.4 cm EDV(MOD-sp4) 98.0 ml EDV(sp4-el) 102.9 ml LVAs ap4 18.7 cm\S\2 LVLs ap4 6.6 cm ESV(MOD-sp4) 45.0 ml ESV(sp4-el) 45.1 ml EF(MOD-sp4) 54.1 % EF(sp4-el) 56.2 % LVAd ap2 36.6 cm\S\2 LVLd ap2 9.2 cm EDV(MOD-sp2) 121.9 ml EDV(sp2-el) 124.1 ml LVAs ap2 22.0 cm\S\2 LVLs ap2 7.5 cm ESV(MOD-sp2) 58.1 ml ESV(sp2-el) 54.8 ml EF(MOD-sp2) 52.3 % EF(sp2-el) 55.8 % LVLd %diff 8.5 % EDV(MOD-bp) 113.5 ml LVLs %diff 11.4 % ESV(MOD-bp) 54.2 ml EF(MOD-bp) 52.2 % SV(MOD-sp4) 53.0 ml SI(MOD-sp4) 26.5 ml/m\S\2 SV(MOD-sp2) 63.8 ml SI(MOD-sp2) 31.9 ml/m\S\2 SV(MOD-bp) 59.3 ml SI(MOD-bp) 29.6 ml/m\S\2 SV(sp4-el) 57.9 ml SI(sp4-el) 28.9 ml/m\S\2 SV(sp2-el) 69.3 ml SI(sp2-el) 34.6 ml/m\S\2 Doppler Measurements and Calculations MV E max claudia 95.6 cm/sec MV A max claudia 93.6 cm/sec MV E/A 1.0 MV dec time 0.25 sec Ao V2 max 140.0 cm/sec Ao max PG 7.8 mmHg Ao max PG (full) 0.88 mmHg LV V1 max PG 7.0 mmHg LV V1 max 131.8 cm/sec TR max claudia 201.1 cm/sec
--- NOTE | 2017-05-13 10:46 | Progress Note ---
Internal Med Progress Note Date of Service: May 13, 2017. Provider Documentation: SUBJECTIVE: Sates feeling well and is eager to get discharged Denies chest pain, SOB, abd pain, palpitations, dizziness. Family at bedside. Offers no complaints OBJECTIVE: Vital Signs-as noted below Physical Exam: General Appearance:Moderately built and nourished, no apparent distress Head: normocephalic, Atraumatic Eyes: normal inspection, EOMI, PERRL Neck: supple, Trachea midline Respiratory/Chest: Normal breath sounds, CTA Cardiovascular: S1, S2, No murmur Abdomen/GI:Soft, Non tender, Bowel sounds present Extremities/Musculoskelatal:normal inspection, no edema Neurologic/Psych:AAOX3, grossly no focal neurological deficits Skin: normal color, warm Lab data as noted below. ASSESSMENT & PLAN: Patient is a 71 yr male with Past Medical History of multiple episodes of vasovagal syncope presents for evaluation of chest pain, abdominal pain with presyncopal symptoms. Chest Pain: R/O ACS Risk factors: H/O family history of heart disease Cardiac enzymes negative EKG:No ST-T wave changes CT dissection: Unremarkable ECHO: EF:55-60%. No regional wall motion abnormalities Continue Aspirin, start lipitor Abdominal pain CT angio/abdomen with evidence of enteritis Symptoms resolved Continue PPI Will start on Lipitor as found Atherosclerotic plaquing at the origins of the renal arteries and SMA Right Hepatic Cyst Vs Hemangioma: Incidental finding on CT Follow up as outpatient Hypotension: Chronic per patient Advised to liberalize salt and encourage oral fluids Currently asymptomatic CT head negative H/O BPH terazosin held for now H/O chronic back pain: age-indeterminate compression deformity of the L2 vertebral body of less than 20 % is noted without significant retropulsion continue pregabalin DVT Px: Lovenox 40 SQ Disposition: Plan to discharge home today Follow up with your primary care physician in 1 week as advised Get stress test as outpatient in 2-4 weeks as advised You were found to have a possible liver cyst on CT scan. follow up with your PCP for further work up. Seek immediate medical attention if your symptoms reoccur or worsen Vital Signs: Date Time Temp Pulse Resp B/P (MAP) Pulse Ox O2 Delivery O2 Flow Rate FiO2 05/13/17 04:00 Room Air 05/13/17 03:59 36.8 58 18 93/53 (66) 93 Room Air 05/13/17 00:22 36.8 65 18 79/46 (57) 96 Room Air 05/13/17 00:00 Room Air 05/12/17 20:16 Room Air 05/12/17 20:10 36.5 55 20 92/52 (65) 95 05/12/17 16:43 36.5 78 20 92/60 92 Room Air 05/12/17 16:14 36.5 78 20 92/60 (71) 92 Room Air 05/12/17 15:06 74 16 89/54 98 05/12/17 14:42 78 16 81/55 94 Room Air 05/12/17 13:49 86 05/12/17 13:13 36.7 74 16 115/72 97 Room Air 05/12/17 11:02 87 18 127/69 97 Room Air Lab Results: Results Past 24 Hours Test 05/12/17 18:05 05/13/17 06:12 Range/Units Troponin I < 0.015 < 0.015 0-0.045 ng/ml Sodium Level 139 136-145 mmol/L Potassium Level 3.7 3.5-5.1 mmol/L Chloride Level 107 98-107 mmol/L Carbon Dioxide Level 26 21-32 mmol/L Anion Gap 6.0 3-11 mmol/L Blood Urea Nitrogen 15 7-18 mg/dl Creatinine 0.69 0.60-1.40 mg/dl Est Creatinine Clear Calc Drug Dose 102.9 ml/min Estimated GFR () 111.5 Estimated GFR (Non- 96.2 BUN/Creatinine Ratio 21.4 10-20 Random Glucose 94 70-99 mg/dl Calcium Level 7.6 8.5-10.1 mg/dl Total Creatine Kinase 283 39-308 U/L
[2017-05-13] MEDS ORDERED: ATOR-22 PO (11:20)
--- NOTE | 2017-05-13 11:21 | Discharge Summary ---
Discharge Summary Date of Service May 13, 2017. Discharge Summary Admission Date: May 12, 2017 at 14:00 Discharge Date: May 13, 2017 Discharge Disposition: Home Principal Diagnosis: Chest pain, Enteritis Procedures: CT Head; 1. No acute intracranial findings. 2. Small left sphenoid sinus air-fluid level. CT dissection: 1. No thoracic aortic dissection. 2. No acute intrathoracic findings. 3. Small hiatal hernia. ABD CTA: 1. No evidence of abdominal aortic aneurysm, dissection or proximal branch occlusion. 2. Atherosclerotic plaquing at the origins of the renal arteries and SMA are present without high-grade stenosis. 3. Age-indeterminate compression deformity of the L2 vertebral body of less than 20% is noted without significant retropulsion. 4. Multiple nondilated fluid-filled loops of small and large bowel are present in conjunction with trace pelvic fluid suggesting enteritis with diarrheal state. There is no evidence of bowel obstruction. 5. Additional incidental findings as above. ECHO: * The left ventricular wall motion is normal. * No regional wall motion abnormalities noted. * The LV Ejection Fraction = 55-60% (normal). * Aortic valve sclerosis mild, without significant aortic valvular stenosis. * Grade I diastolic dysfunction, (abnormal relaxation pattern). Consultations: None Pending Studies/Follow-Up: Follow up with your primary care physician in 1 week as advised Get stress test as outpatient in 2-4 weeks as advised You were found to have a possible liver cyst on CT scan. follow up with your PCP for further work up. Seek immediate medical attention if your symptoms reoccur or worsen Medication Reconciliation New Medications: Atorvastatin (Lipitor) 20 Mg Tab 1 TAB PO DAILY for 30 Days, #30 TAB Continued Medications: Acetaminophen (Tylenol) 500 Mg Tab 500 MG PO PRN for Pain, TAB Aspirin (Aspirin Ec) 81 Mg Tab 81 MG PO DAILY Cyclobenzaprine Hcl (Flexeril) 10 Mg Tab 10 MG PO HS, #21 TAB Diclofenac (Voltaren) 75 Mg Tabcr 75 MG PO BID, TAB WITH FOOD Diclofenac Sodium (Topical) (Voltaren 1% Top Gel) 1 % Gel 1 APPLN TOP PRN for Pain Fluticasone Propionate (Nasal) (Flonase Allergy Relief) 50 Mcg/Act Spr 2 SPRAYS NA DAILY Glucosamine Sulfate (Glucosamine) 1,000 Mg Cap 1000 MG PO DAILY Loratadine (Claritin) 10 Mg Tab 10 MG PO DAILY, TAB Methocarbamol (Robaxin) 750 Mg Tab 750 MG PO DAILY, TAB Omeprazole (Prilosec) 20 Mg Capcr 20 MG PO DAILY, CAP Pregabalin (Lyrica) 50 Mg Cap 100 MG PO HS, CAP Pseudoephedrine (Sudafed) 30 Mg Tab 30 MG PO DAILY, TAB Sildenafil Citrate (Viagra) 100 Mg Tab 100 MG PO PRN, TAB Terazosin Hcl (Hytrin) 2 Mg Cap 2 MG PO HS, CAP Admission Information HPI (per Admitting provider): 71 year old M with Past Medical History of multiple episodes of vasovagal syncope with prior hospital workup outside of [facility] with last episode of LOC from syncope in January of 2017, history of hernia repairs with last repair 3 to 4 years ago, history of back surgeries with last surgery 5 years ago for degenerative disc changes with 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 Patient also reported feeling headache. Vitals in the ED were remarkable for low normal blood pressure of 103/60 and HR 70. Initial temperature was not documented however subsequent temperature taken afebrile 99.7 F. Because of pain of the head, chest , abdomen, patient was sent by ED provider for CT scan of head and CT abdomen/ angiography. CT head did not show evidence of intracranial injury and CT abdomen /angiography showed multiple nondilated fluid-filled loops of small and large bowel are present in conjunction with trace pelvic fluid suggestive of enteritis. As per the imaging report there is no evidence of abdominal aortic aneurysm, dissection or proximal branch occlusion; there is atherosclerotic plaquing at the origins of the renal arteries and SMA are present without high- grade stenosis. Other findings of small hiatal hernia and a right hepatic lobe cyst and age-indeterminate compression deformity of the L2 vertebral body of less than 20% is noted without significant retropulsion. Labs reviewed showing first troponin level negative at 0.03 and levels of AST/ALT/ Alkaline phosphatase/Bilirubin/Lipase within normal limits however elevated CK of 572. Urine studies negative. In the ED patient received IV fluids and Zofran 4 mg IV and when seen by hospitalist medicine provider, patient did not have further acute complaints of lightheadedness, chest/abdominal pain, or vomiting. He was able to give history without distress. Physical Exam (per Admitting): General Appearance: no apparent distress Head: normocephalic, atraumatic Eyes: normal inspection, PERRL, EOMI ENT: normal ENT inspection, hearing grossly normal, pharynx normal Neck: supple, no JVD, trachea midline Respiratory/Chest: chest non-tender, lungs clear, normal breath sounds, no respiratory distress, no accessory muscle use Cardiovascular: regular rate, rhythm, no edema, no JVD Abdomen/GI: normal bowel sounds, non tender, soft Back: normal inspection, no CVA tenderness, no muscle spasm, normal range of motion Extremities/Musculoskelatal: normal inspection, no calf tenderness, no pedal edema Hospital Course Patient is a 71 yr male with Past Medical History of multiple episodes of vasovagal syncope presents for evaluation of chest pain, abdominal pain with presyncopal symptoms. Chest Pain: R/O ACS Risk factors: H/O family history of heart disease Cardiac enzymes negative EKG:No ST-T wave changes CT dissection: Unremarkable ECHO: EF:55-60%. No regional wall motion abnormalities Continue Aspirin, start lipitor Abdominal pain CT angio/abdomen with evidence of enteritis Symptoms resolved Continue PPI Will start on Lipitor as found Atherosclerotic plaquing at the origins of the renal arteries and SMA Right Hepatic Cyst Vs Hemangioma: Incidental finding on CT Follow up as outpatient Hypotension: Chronic per patient Advised to liberalize salt and encourage oral fluids Currently asymptomatic CT head negative H/O BPH terazosin held for now H/O chronic back pain: age-indeterminate compression deformity of the L2 vertebral body of less than 20 % is noted without significant retropulsion continue pregabalin DVT Px: Lovenox 40 SQ Disposition: Plan to discharge home today Follow up with your primary care physician in 1 week as advised Get stress test as outpatient in 2-4 weeks as advised You were found to have a possible liver cyst on CT scan. follow up with your PCP for further work up. Seek immediate medical attention if your symptoms reoccur or worsen Total time spent on discharge = 34 minutes This includes examination of the patient, discharge planning, medication reconciliation, and communication with other providers. Discharge Instructions Discharge Instructions Date of Service May 13, 2017. Admission Reason for Admission: Abdominal Pain, Dizziness, Vomiting Discharge Discharge Diagnosis / Problem: Chest pain, Enteritis Discharge Goals Goal(s): Decrease discomfort, Improve function Activity Recommendations Activity Limitations: resume your previous activity Exercise/Sports Limitations: as tolerated . Instructions / Follow-Up Instructions / Follow-Up Follow up with your primary care physician in 1 week as advised Get stress test as outpatient in 2-4 weeks as advised You were found to have a possible liver cyst on CT scan. follow up with your PCP for further work up. Seek immediate medical attention if your symptoms reoccur or worsen Current Hospital Diet Patient's current hospital diet: Regular Diet Discharge Diet Recommended Diet: Regular Diet Pending Studies Studies pending at discharge: no Medical Emergencies . Who to Call and When: Medical Emergencies: If at any time you feel your situation is an emergency, please call 911 immediately. . Non-Emergent Contact Non-Emergency issues call your: Primary Care Provider Call Non-Emergent contact if: you have a fever, your pain is not controlled, your pain is worsening, your pain is unusual for you, you have any medication questions If your symptoms reoccur or worsen . . "Provider Documentation" section prepared by Sami Perkins. . VTE Core Measure Inpt VTE Proph given/why not?: Enoxaparin (Lovenox)SQ
[2017-05-13 11:35] VITALS: BP 93/53; PULSE 58; TEMP 36.8; O2SAT 93
== END 2017-05-13 12:00 | disposition home or self-care (01) ==
LOC: C.EDB 09:30 → C.MED 14:00 → ENRESERV 14:46
PROVIDERS: ADMIT Hospitalist; ATTEND Internal Medicine
DX: R07.9 Chest pain, unspecified (principal); K52.9 Noninfective gastroenteritis and colitis, unspecified; I95.89 Other hypotension; G89.29 Other chronic pain; M54.5 Low back pain; K76.9 Liver disease, unspecified; N40.0 Benign prostatic hyperplasia without lower urinary tract symptoms; Z79.82 Long term (current) use of aspirin; Z79.899 Other long term (current) drug therapy